=== PATIENT | female | born 1970 | race African-American/Black ===

== ENCOUNTER 2019-08-04 10:37 | Emergency (ER) | payer SELFPAY ==
[~2019-08-04] VITALS: Ht 162.6 cm; Wt 132.7 kg
[2019-08-04 10:47] VITALS: BP 179/111; PULSE 67; TEMP 97.9
[2019-08-04] MEDS ORDERED: TENORMIN 5050 MG/TAB PO ×2 (11:26→11:59)
== END 2019-08-04 12:40 | disposition home or self-care (01) ==
LOC: COL.ER 10:37
DX: S63.501A Unspecified sprain of right wrist, initial encounter (principal); E03.9 Hypothyroidism, unspecified; W18.39XA Other fall on same level, initial encounter; Y92.009 Unspecified place in unspecified non-institutional (private) residence as the place of occurrence of the external cause
CPT/HCPCS: Q4021

== ENCOUNTER 2019-08-07 03:27 | Emergency (ER) | payer SELFPAY ==
[~2019-08-07] VITALS: Wt 131.8 kg
[~2019-08-07 03:27] MED LIST: TENORMIN 5050 MG/TAB PO
[2019-08-07 03:50] VITALS: TEMP 98.5
[2019-08-07 05:35] LABS: BASO % 0.4 % (0.0-2.0); EOS # 0.3 (0.0-0.7); EOS % 4.7 % (0-4.0); GRAN # 4.3 (1.4-6.5); GRAN % 60.7 % (42.2-75.2); HEMATOCRIT 39.5 % (37.0-47.0); HEMOGLOBIN 12.8 g/dl (12.5-16.0); LYMPH # 1.7 (1.2-3.4); LYMPH % 24.2 % (20.0-51.0); MEAN CELL VOLUME 86 fl (80.0-100.0); MEAN CORPUSCULAR HEMOGLOBIN 28 pg (27.0-31.0); MEAN CORPUSCULAR HGB CONC 32 g/dl (33.0-37.0); MEAN PLATELET VOLUME 11.7 fl (7.4-10.4); MONO # 0.7 (0.1-0.6); MONO % 9.4 % (1.7-9.3); PLATELET COUNT 188 K/mm3 (130-400); REDCELL DISTRIBUTION WIDTH-CV 14.5 % (11.5-14.5)
[2019-08-07 05:45] LABS: C-REACTIVE PROTEIN 0.6 mg/dL (0.0-0.9); CALCIUM 9.1 mg/dL (8.4-10.2); CREATININE, serum 0.7 (0.52-1.25); POTASSIUM 3.6 mmol/L (3.4-5.0); URIC ACID 6.2 mg/dL (2.5-6.2)
[2019-08-07] MEDS ORDERED: NORCO 325 MG-51 TAB PO (06:21)
[2019-08-07 07:02] VITALS: BP 144/85; PULSE 60
== END 2019-08-07 07:30 | disposition home or self-care (01) ==
LOC: COL.ER 03:27
PROVIDERS: Emergency Medicine
DX: S60.221A Contusion of right hand, initial encounter (principal); I10 Essential (primary) hypertension; W19.XXXA Unspecified fall, initial encounter
CPT/HCPCS: J1170; J1885